=== PATIENT | male | born 1965 | race Caucasian/White ===

== ENCOUNTER 2017-03-24 09:52 | Emergency (ER) | payer SELFPAY ==
--- NOTE | 2017-03-24 10:18 | ERPHSYRPT ---
- History of Present Illness Time Seen by Provider: 03/24/17 09:59 Source: patient, other (Physical Therapist) Physician History: CC: low BP HX: 51 y/o patient enrolled in PT for post right knee replacement and then work hardening. He has had high BP and then now has low BP. He was sluggist at PT this AM. Not his normal self. Pt states he has recently started new BP med. He has hx of heavy alcohol use and has been told he has liver trouble. He sees [facility]. He has had vomiting and diarrhea for a month. No fever or chills. Feels tired and fatigue with generalized weakness. Severity: severe Allergies/Adverse Reactions: No Known Drug Allergies Allergy (Verified 09/27/12 02:14) Home Medications: Gabapentin 400 mg [Neurontin 400 MG] 400 mg PO TID 07/11/15 [History] Hydrocodone/APAP 10/325 mg [[place] 10/325 MG Tablet] 1 tab PO Q4-6HPRN PRN 08/16/15 [History] Hx Tetanus, Diphtheria Vaccination/Date Given: Yes Hx Influenza Vaccination/Date Given: No Hx Pneumococcal Vaccination/Date Given: No - Review of Systems Constitutional: Fatigue, Malaise, Weakness, No Fever, No Chills Eyes: No Symptoms Respiratory: No Cough, No Dyspnea Cardiac: Edema, No Chest Pain, No Syncope Abdominal/Gastrointestinal: Abdominal Pain, Nausea, Vomiting, Diarrhea Genitourinary Symptoms: No Dysuria Skin: No Rash Neurological: No Focal Weakness, No Headache All Other Systems: Reviewed and Negative - Past Medical History Pertinent Past Medical History: Yes Neurological History: No Pertinent History ENT History: No Pertinent History Cardiac History: Coronary Artery Disease, Hypertension Respiratory History: No Pertinent History Endocrine Medical History: No Pertinent History Musculoskeletal History: Arthritis GI Medical History: Hernia History: No Pertinent History Psycho-Social History: No Pertinent History Male Reproductive Disorders: No Pertinent History Other Medical History: R CALCANEUS FX 2011 W/ ORIF. - Past Surgical History Past Surgical History: Yes Neuro Surgical History: No Pertinent History Cardiac: No Pertinent History Respiratory: No Pertinent History Gastrointestinal: No Pertinent History Genitourinary: No Pertinent History Musculoskeletal: Joint Replacement Male Surgical History: No Pertinent History - Social History Smoking Status: Never smoker Exposure to second hand smoke: No Drug Use: none Patient Lives Alone: Yes - Nursing Vital Signs Nursing Vital Signs: Initial Vital Signs Temperature 97.4 F 03/24/17 10:01 Pulse Rate 102 H 03/24/17 10:01 Respiratory Rate 16 03/24/17 10:01 Blood Pressure 87/66 03/24/17 10:01 O2 Sat by Pulse Oximetry 100 03/24/17 10:01 Pain Scale Pain Intensity 0 - Physical Exam General Appearance: alert (lethargic) Eye Exam: PERRL/EOMI, No scleral icterus Ears, Nose, Throat Exam: dry mucous membranes Neck Exam: normal inspection, non-tender, supple, No meningismus Respiratory Exam: diminished breath sounds Cardiovascular Exam: regular rate/rhythm Gastrointestinal/Abdomen Exam: soft, tenderness (diffusely, nondistended) Male Genitalia Exam: normal genitalia, No hernia Extremity Exam: pedal edema Neurologic Exam: alert, cooperative, No motor deficits Skin Exam: warm, dry, No rash - Course Nursing assessment & vital signs reviewed: Yes EKG Interpreted by Me: RATE (99), Sinus Rhythm, NORMAL AXIS, prolonged QT interval (QTc 506), Non-specific ST Changes - Radiology Exams cxr X-ray Interpretation: Teleradiologist Report, Negative - CT Exams abd/pelvis CT Interpretation: Tele-radiologist Report (new nonobstructing renal calculus, stable fatty liver and old granulomatous disease, no acute.) Ordered Tests: Active Orders 24 hr Category Date Time Status ACCUCHECK [Accucheck] STAT Care 03/24/17 10:11 Active Clean Catch Urine Specimen STAT Care 03/24/17 10:09 Active EKG-ER Only STAT Care 03/24/17 10:09 Active Fam [Catheter-[place] Fam] STAT Care 03/24/17 11:56 Active IV Insertion STAT Care 03/24/17 10:09 Active NPO (ED) STAT Care 03/24/17 10:09 Active Rectal Temperature STAT Care 03/24/17 10:11 Active ABDOMEN AND PELVIS W/0 CONTRAS [CT] Stat Exams 03/24/17 10:10 Completed CHEST 1 VIEW (PORTABLE) Stat Exams 03/24/17 10:10 Completed ACETAMINOPHEN Routine Lab 03/24/17 10:21 Completed CBC W DIFF Stat Lab 03/24/17 10:21 Completed CMP Routine Lab 03/24/17 10:21 Completed CULTURE,URINE Stat Lab 03/24/17 11:15 Received ETHYL ALCOHOL Routine Lab 03/24/17 10:21 Completed LIPASE Routine Lab 03/24/17 10:21 Completed Lactic Acid Stat Lab 03/24/17 10:09 Completed Lactic Acid Stat Lab 03/24/17 12:25 Ordered MAGNESIUM Routine Lab 03/24/17 10:21 Completed PROTIME WITH INR Stat Lab 03/24/17 10:21 Completed TROPONIN Q3H Lab 03/24/17 10:21 Completed TROPONIN Q3H Lab 03/24/17 13:15 Ordered TROPONIN Q3H Lab 03/24/17 16:15 Ordered TROPONIN Q3H Lab 03/24/17 19:15 Ordered TROPONIN Q3H Lab 03/24/17 22:15 Ordered UA W/ MICROSCOPIC Stat Lab 03/24/17 11:15 Completed Urine Triage Profile Stat Lab 03/24/17 11:15 Completed VENOUS BLOOD GAS Urgent Lab 03/24/17 10:11 Completed Medication Summary Generic Name Dose Route Start Last Admin Trade Name Freq PRN Reason Stop Dose Admin Potassium Chloride 100 mls @ 50 mls/hr 03/24/17 10:41 03/24/17 11:06 Potassium Chloride 20 Meq In Water 100ml IV 03/24/17 12:40 50 mls/hr STAT ONE Administration Discontinued Medications Generic Name Dose Route Start Last Admin Trade Name Freq PRN Reason Stop Dose Admin Sodium Chloride 500 mls @ 999 mls/hr 03/24/17 10:09 03/24/17 10:32 Sodium Chloride 0.9% 1000 Ml IV 03/24/17 10:39 999 mls/hr .Q31M STA Administration Sodium Chloride Confirm 03/24/17 10:20 Sodium Chloride 0.9% 1000 Ml Administered 03/24/17 10:21 Dose 1,000 mls @ ud .ROUTE .STK-MED ONE Potassium Chloride Confirm 03/24/17 10:59 Potassium Chloride 20 Meq In Water 100ml Administered 03/24/17 11:00 Dose 100 mls @ ud IV .STK-MED ONE Lactated Ringer's Confirm 03/24/17 11:08 Lactated Ringers Administered 03/24/17 11:09 Dose 1,000 mls @ ud IV .STK-MED ONE Lab/Rad Data: Laboratory Result Diagrams 03/24/17 10:21 03/24/17 10:21 Laboratory Results 03/24/17 03/24/17 03/24/17 Range/Units 11:15 11:15 10:21 WBC (4.0-10.5) K/mm3 RBC (4.1-5.6) M/mm3 Hgb (12.5-18.0) gm/dl Hct (42-50) % MCV (78-100) fl MCH (26-32) pg MCHC (32-36) g/dl RDW (11.5-14.0) % Plt Count (150-450) K/mm3 MPV (6-9.5) fl Gran % (36.0-66.0) % Lymphocytes % (24.0-44.0) % Monocytes % (0.0-12.0) % Eosinophils % (0.00-5.0) % Basophils % (0.0-0.4) % Basophils # (0-0.4) INR (0.8-3.0) VBG pH (7.32-7.42) VBG pCO2 at Pat Temp (42-55) mm/Hg VBG pO2 at Pat Temp (25-40) mm/Hg VBG HCO3 (22-28) meq/L VBG O2 Sat (Teresita) (95-100) VBG Base Excess (-2.0-2.0) VBG Hemoglobin VBG Carboxyhemoglobin (0.0-6.9) % T HGB POC Potassium (3.5-5.1) Sodium (136-145) mEq/L Potassium (3.5-5.1) mEq/L Chloride (98-107) mEq/L Carbon Dioxide (21-32) mEq/L Anion Gap (5-15) MEQ/L BUN (9-20) mg/dL Creatinine (0.55-1.30) mg/dl Estimated GFR ML/MIN Glucose (70-110) MG/DL Lactic Acid (0.4-2.0) Calcium (8.5-10.1) mg/dL Magnesium (1.8-2.4) mg/dL Total Bilirubin (0.2-1.0) mg/dL AST (15-37) U/L ALT (12-78) U/L Alkaline Phosphatase (46-116) U/L Ammonia 17 (11-32) MMOL/l Troponin I (0.000-0.056) ng/ml Serum Total Protein (6.4-8.2) gm/dL Albumin (3.4-5.0) g/dL Lipase (73-393) U/L Ur Collection Type CLEAN CATCH Urine Color DARK YELLOW (YELLOW) Urine Appearance HAZY (CLEAR) Urine pH 5.0 (5-6) Ur Specific Meherrin 1.030 (1.005-1.025) Urine Protein TRACE (Negative) Urine Ketones NEGATIVE (NEGATIVE) Urine Blood NEGATIVE (0-5) Thomas/ul Urine Nitrite NEGATIVE (NEGATIVE) Urine Bilirubin SMALL (NEGATIVE) Urine Urobilinogen NORMAL (0-1) mg/dL Ur Leukocyte Esterase 1+ (NEGATIVE) Urine Microscopic RBC 0-2 (0-2) /HPF Urine Microscopic WBC 2-5 (0-5) /HPF Ur Epithelial Cells FEW (FEW) /HPF Urine Bacteria FEW (NEGATIVE) /HPF Hyaline Casts 5-10 (0-2) /LPF Urine Culture Reflexed YES (NO) Urine Glucose NEGATIVE (NEGATIVE) mg/dL Urine Opiates Level NEG. (NEGATIVE) Ur Methadone NEG. (NEGATIVE) Acetaminophen (10-30) ug/ml Urine Barbiturates NEG. (NEGATIVE) Ur Phencyclidine (PCP) NEG. (NEGATIVE) Urine Amphetamine NEG. (NEGATIVE) U Benzodiazepine Level NEG. (NEGATIVE) Urine Cocaine NEG. (NEGATIVE) Urine Marijuana (THC) POS. (NEGATIVE) Ethyl Alcohol (0.00-0.01) % Specimen Received 03/24/17 1117 03/24/17 03/24/17 03/24/17 Range/Units 10:21 10:21 10:21 WBC 11.7 H (4.0-10.5) K/mm3 RBC 3.50 L (4.1-5.6) M/mm3 Hgb 13.0 (12.5-18.0) gm/dl Hct 36.5 L (42-50) % MCV 104.3 H (78-100) fl MCH 37.1 H (26-32) pg MCHC 35.6 (32-36) g/dl RDW 15.7 H (11.5-14.0) % Plt Count 163 (150-450) K/mm3 MPV 10.3 H (6-9.5) fl Gran % 80.8 H (36.0-66.0) % Lymphocytes % 11.2 L (24.0-44.0) % Monocytes % 7.0 (0.0-12.0) % Eosinophils % 0.6 (0.00-5.0) % Basophils % 0.4 (0.0-0.4) % Basophils # 0.05 (0-0.4) INR 1.13 (0.8-3.0) VBG pH (7.32-7.42) VBG pCO2 at Pat Temp (42-55) mm/Hg VBG pO2 at Pat Temp (25-40) mm/Hg VBG HCO3 (22-28) meq/L VBG O2 Sat (Teresita) (95-100) VBG Base Excess (-2.0-2.0) VBG Hemoglobin VBG Carboxyhemoglobin (0.0-6.9) % T HGB POC Potassium (3.5-5.1) Sodium 131 L (136-145) mEq/L Potassium 2.9 L* (3.5-5.1) mEq/L Chloride 90 L (98-107) mEq/L Carbon Dioxide 25.1 (21-32) mEq/L Anion Gap 18.5 H (5-15) MEQ/L BUN 55 H (9-20) mg/dL Creatinine 5.80 H (0.55-1.30) mg/dl Estimated GFR 11 ML/MIN Glucose 146 H (70-110) MG/DL Lactic Acid (0.4-2.0) Calcium 8.6 (8.5-10.1) mg/dL Magnesium 1.7 L (1.8-2.4) mg/dL Total Bilirubin 1.90 H (0.2-1.0) mg/dL AST 56 H (15-37) U/L ALT 24 (12-78) U/L Alkaline Phosphatase 116 (46-116) U/L Ammonia (11-32) MMOL/l Troponin I < 0.017 (0.000-0.056) ng/ml Serum Total Protein 7.4 (6.4-8.2) gm/dL Albumin 2.6 L (3.4-5.0) g/dL Lipase 189 (73-393) U/L Ur Collection Type Urine Color (YELLOW) Urine Appearance (CLEAR) Urine pH (5-6) Ur Specific Meherrin (1.005-1.025) Urine Protein (Negative) Urine Ketones (NEGATIVE) Urine Blood (0-5) Thomas/ul Urine Nitrite (NEGATIVE) Urine Bilirubin (NEGATIVE) Urine Urobilinogen (0-1) mg/dL Ur Leukocyte Esterase (NEGATIVE) Urine Microscopic RBC (0-2) /HPF Urine Microscopic WBC (0-5) /HPF Ur Epithelial Cells (FEW) /HPF Urine Bacteria (NEGATIVE) /HPF Hyaline Casts (0-2) /LPF Urine Culture Reflexed (NO) Urine Glucose (NEGATIVE) mg/dL Urine Opiates Level (NEGATIVE) Ur Methadone (NEGATIVE) Acetaminophen < 2.0 L (10-30) ug/ml Urine Barbiturates (NEGATIVE) Ur Phencyclidine (PCP) (NEGATIVE) Urine Amphetamine (NEGATIVE) U Benzodiazepine Level (NEGATIVE) Urine Cocaine (NEGATIVE) Urine Marijuana (THC) (NEGATIVE) Ethyl Alcohol < 0.010 (0.00-0.01) % Specimen Received 03/24/17 03/24/17 Range/Units 10:11 10:09 WBC (4.0-10.5) K/mm3 RBC (4.1-5.6) M/mm3 Hgb (12.5-18.0) gm/dl Hct (42-50) % MCV (78-100) fl MCH (26-32) pg MCHC (32-36) g/dl RDW (11.5-14.0) % Plt Count (150-450) K/mm3 MPV (6-9.5) fl Gran % (36.0-66.0) % Lymphocytes % (24.0-44.0) % Monocytes % (0.0-12.0) % Eosinophils % (0.00-5.0) % Basophils % (0.0-0.4) % Basophils # (0-0.4) INR (0.8-3.0) VBG pH 7.42 (7.32-7.42) VBG pCO2 at Pat Temp 41 L (42-55) mm/Hg VBG pO2 at Pat Temp 25 (25-40) mm/Hg VBG HCO3 26.6 (22-28) meq/L VBG O2 Sat (Teresita) 49.1 L (95-100) VBG Base Excess 1.9 (-2.0-2.0) VBG Hemoglobin 14.0 VBG Carboxyhemoglobin 3.1 (0.0-6.9) % T HGB POC Potassium 2.8 L* (3.5-5.1) Sodium (136-145) mEq/L Potassium (3.5-5.1) mEq/L Chloride (98-107) mEq/L Carbon Dioxide (21-32) mEq/L Anion Gap (5-15) MEQ/L BUN (9-20) mg/dL Creatinine (0.55-1.30) mg/dl Estimated GFR ML/MIN Glucose (70-110) MG/DL Lactic Acid 3.1 H (0.4-2.0) Calcium (8.5-10.1) mg/dL Magnesium (1.8-2.4) mg/dL Total Bilirubin (0.2-1.0) mg/dL AST (15-37) U/L ALT (12-78) U/L Alkaline Phosphatase (46-116) U/L Ammonia (11-32) MMOL/l Troponin I (0.000-0.056) ng/ml Serum Total Protein (6.4-8.2) gm/dL Albumin (3.4-5.0) g/dL Lipase (73-393) U/L Ur Collection Type Urine Color (YELLOW) Urine Appearance (CLEAR) Urine pH (5-6) Ur Specific Meherrin (1.005-1.025) Urine Protein (Negative) Urine Ketones (NEGATIVE) Urine Blood (0-5) Thomas/ul Urine Nitrite (NEGATIVE) Urine Bilirubin (NEGATIVE) Urine Urobilinogen (0-1) mg/dL Ur Leukocyte Esterase (NEGATIVE) Urine Microscopic RBC (0-2) /HPF Urine Microscopic WBC (0-5) /HPF Ur Epithelial Cells (FEW) /HPF Urine Bacteria (NEGATIVE) /HPF Hyaline Casts (0-2) /LPF Urine Culture Reflexed (NO) Urine Glucose (NEGATIVE) mg/dL Urine Opiates Level (NEGATIVE) Ur Methadone (NEGATIVE) Acetaminophen (10-30) ug/ml Urine Barbiturates (NEGATIVE) Ur Phencyclidine (PCP) (NEGATIVE) Urine Amphetamine (NEGATIVE) U Benzodiazepine Level (NEGATIVE) Urine Cocaine (NEGATIVE) Urine Marijuana (THC) (NEGATIVE) Ethyl Alcohol (0.00-0.01) % Specimen Received - Progress Progress Note: 03/24/17 11:11 BP low. IVF bolus given. Maya moraes. Maya rider initiated. 03/24/17 12:35 BP better. Spoke to Dr Chong who advised transfer to [facility]. Called [facility] transfer center and Dr Maya Alonzo accepts to [facility] ER. Counseled pt/family regarding: lab results, diagnosis, need for follow-up, rad results - Departure Time of Disposition: 12:36 Departure Disposition: Transfer ([facility] ER) Clinical Impression: Hypotension, Acute renal failure, Hypokalemia, Hepatorenal syndrome Condition: Fair Critical Care Time: Yes Critical Care Time(excluding separately billable procedures): 30-74 minutes Referrals: JESSICA CHONG MD [Primary Care Provider] -
[2017-03-24] MEDS ORDERED: Sodium Chloride 0.9% 1000 ML 1,000 ML ONE (10:20)
[2017-03-24 10:25] LABS: Lactic Acid 3.1 (0.4-2.0)
[2017-03-24 10:27] LABS: BASOPHIL % 0.4 % (0.0-0.4); Basophil (Absolute #) 0.05 (0-0.4); Eosinophil % 0.6 % (0.00-5.0); Eosinophil (Absolute #) 0.07 (0-0.5); Granulocyte Absolute (ANC) 9.42 (1.4-6.9); Granulocytes % 80.8 % (36.0-66.0); Hematocrit 36.5 % (42-50); Lymphocyte (Absolute #) 1.31 (1.0-4.6); Lymphocytes % 11.2 % (24.0-44.0); Mean Cell Volume 104.3 fl (78-100); Mean Corpuscular Hemoglobin 37.1 pg (26-32); Mean Corpuscular Hgb Concent. 35.6 g/dl (32-36); Mean Platelet Volume 10.3 fl (6-9.5); Monocyte (Absolute #) 0.82 (0.0-1.3); Platelet Count 163 K/mm3 (150-450); Red Cell Distribution Width 15.7 % (11.5-14.0); White Blood Count 11.7 K/mm3 (4.0-10.5)
[2017-03-24 10:27] LABS: VBG BASE EXCESS 1.9 (-2.0-2.0); VBG CARBOXYHEMOGLOBIN 3.1 % T HGB (0.0-6.9); VBG HCO3- 26.6 meq/L (22-28); VBG O2 SATURATION 49.1 (95-100); VBG pH 7.42 (7.32-7.42)
[2017-03-24 10:28] LABS: VBG POTASSIUM 2.8 (3.5-5.1)
[2017-03-24 10:40] LABS: INR 1.13 (0.8-3.0)
--- NOTE | 2017-03-24 10:50 | XRAY ---
Indication: Hypotension. Comparison: September 07, 2014. Portable apical lordotic chest again demonstrates normal heart and lungs with a few incidental scattered calcified granulomas. Bony thorax intact. No new/acute findings. Impression: Stable nonacute chest.
[2017-03-24 10:52] LABS: ALBUMIN 2.6 g/dL (3.4-5.0); ALKALINE PHOSPHATASE 116 U/L (46-116); ANION GAP 18.5 MEQ/L (5-15); BLOOD UREA NITROGEN 55 mg/dL (9-20); CHLORIDE 90 mEq/L (98-107); Calcium 8.6 mg/dL (8.5-10.1); Carbon Dioxide 25.1 mEq/L (21-32); EST GLOMERULAR FILTRATION RATE 11 ML/MIN; ETHYL ALCOHOL < 0.010 % (0.00-0.01); Glucose 146 MG/DL (70-110); LIPASE 189 U/L (73-393); SGOT/AST 56 U/L (15-37); SGPT/ALT 24 U/L (12-78); SODIUM 131 mEq/L (136-145); Total Protein 7.4 gm/dL (6.4-8.2)
--- NOTE | 2017-03-24 10:53 | XRAY ---
Indication: Abdominal pain. Cirrhosis. Multiple contiguous axial images obtained through the abdomen and pelvis without contrast as ordered. Comparison: May 28, 2012. Lung bases demonstrates stable bilateral calcified and noncalcified granulomas. No infiltrate or effusion. Heart is not enlarged. Noncontrasted stomach and bowel loops appear nonobstructed. Normal appendix. Stable diffuse fatty liver. No free fluid/air. New nonobstructing punctate left lower renal calculus. Remaining liver, gallbladder, pancreas, spleen, adrenal glands, kidneys, ureters and bladder, and aorta appear unremarkable for noncontrast exam. Osseous structures intact with mild degenerative changes throughout the spine and stable thoracolumbar Schmorl nodes. Impression: 1. New nonobstructing left renal micro-calculus. 2. Stable fatty liver and evidence for old granulomatous disease. 3. No acute intra-abdominal/pelvic abnormalities on this noncontrast exam. CT DI 23.46
[2017-03-24] MEDS ORDERED: POTASSIUM CHLORIDE 20 mEq IN WATER 100ML 100 ML IV ONE (10:59)
[2017-03-24 11:04] LABS: MAGNESIUM 1.7 mg/dL (1.8-2.4); Potassium 2.9 mEq/L (3.5-5.1); TROPONIN < 0.017 ng/ml (0.000-0.056)
[2017-03-24 11:05] LABS: ACETAMINOPHEN < 2.0 ug/ml (10-30)
[2017-03-24] MEDS: POTASSIUM CHLORIDE 20 mEq IN WATER 100ML 100 ML IV ONE (11:06)
[2017-03-24] MEDS ORDERED: Lactated Ringers 1,000 ML IV ONE (11:08)
[2017-03-24 11:47] LABS: Amphetamine,Urine NEG. (NEGATIVE); Barbiturate,Urine NEG. (NEGATIVE); Benzodiazepine,Urine NEG. (NEGATIVE); Cocaine,Urine NEG. (NEGATIVE); Methadone,Urine NEG. (NEGATIVE); Opiate,Urine NEG. (NEGATIVE); PCP,Urine NEG. (NEGATIVE); THC,Urine POS. (NEGATIVE)
[2017-03-24 11:52] LABS: Appearance HAZY (CLEAR); Glucose NEGATIVE (NEGATIVE); Ketones NEGATIVE (NEGATIVE); Leukocyte Esterase 1+ (NEGATIVE); Nitrite NEGATIVE (NEGATIVE); Protein,Urine Dip TRACE (Negative); Urobilinogen NORMAL mg/dL (0-1)
[2017-03-24 11:53] LABS: Bacteria FEW /HPF (NEGATIVE); Bilirubin SMALL (NEGATIVE); Blood NEGATIVE Ery/ul (0-5); Epithelial Cells FEW /HPF (FEW)
[2017-03-24 14:08] VITALS: BP 120/84; PULSE 85; O2SAT 99
== END 2017-03-24 14:20 | disposition short-term general hospital (02) ==
LOC: ED 09:52
DX: N17.9 Acute kidney failure, unspecified (principal); E87.6 Hypokalemia; K76.7 Hepatorenal syndrome; I10 Essential (primary) hypertension; I25.10 Atherosclerotic heart disease of native coronary artery without angina pectoris; M19.90 Unspecified osteoarthritis, unspecified site
CPT/HCPCS: 36000; 36415; 51702; 71045; 74176; 80053; 80307; 81000; 82140; 82805; 82962; 83605; 83690; 83735; 84484; 85025; 85610; 87077; 87086; 87186; 93005; 96360; 96361; 96365; 99291; G0481; J3480

== ENCOUNTER 2017-11-22 20:31 | Emergency (ER) | payer OTHER ==
[2017-11-22] MEDS ORDERED: Sodium Chloride 0.9% 1000 ML 1,000 ML ONE ×2 (20:34→21:17)
[2017-11-22] MEDS: Sodium Chloride 0.9% 1000 ML 1,000 ML IV STA (20:40)
[2017-11-22] MEDS: Zemuron 100 MG/10 ML IV ONE (20:41)
[2017-11-22] MEDS: VERSED 5 MG/5 ML IV ONE (20:41)
[2017-11-22] MEDS ORDERED: solu-MEDROL 125 MG ONE (20:47)
[2017-11-22] MEDS: solu-MEDROL 125 MG IV ONE (20:48)
[2017-11-22] MEDS ORDERED: Versed 50 MG/ 10 Ml MDV ONE (20:57)
[2017-11-22] MEDS ORDERED: Sodium Chloride 0.9% 250 ML 250 ML IV ONE (20:57)
--- NOTE | 2017-11-22 21:00 | ERPHSYRPT ---
- History of Present Illness Time Seen by Provider: 11/22/17 20:35 Source: family, EMS Exam Limitations: clinical condition Patient Subjective Stated Complaint: PER EMS - upon arrival on scene pt was in basement sitting in a chair severely short of breath, reports pt was sitting on a pad saturated with bright red blood Triage Nursing Assessment: pt is lethargic upon arrival, pt being bagged per EMS at this time, pt skin is dusky, pt radial pulses are strong and regular, pt moaning at this time, pt not responding to painful stimuli, pt abd is soft, slightly distended. 4+ pitting edema noted to bilateral lower extremities. Physician History: 52 y/o white male with h/o chf, copd, cirrhosis, acute and chronic anemia presents with severe soa and respiratory distress. pt arrives in respiratory arrest. not intubated and no peripheral access. pts hx obtained from family members. pt bled rectally at home. he became diaphoretic and in severe soa. pt on eliquis. pt on bumex, thiamine. pts initial bp was 60s/40s, oxygen sats 60s to low 70s rm air sats. pt recently discharged from [facility] for acute blood loss requiring blood transfusion as well as 4 days on ventilator. Timing/Duration: today Activities at Onset: none Severity of Dyspnea-Max: severe Severity of Dyspnea-Current: severe Possible Cause: frequent episodes, chronic episodes Modifying Factors: Improves With: exertion Associated Symptoms: intermittent, weakness Allergies/Adverse Reactions: No Known Drug Allergies Allergy (Verified 11/22/17 21:11) Home Medications: Apixaban [Eliquis] 5 mg PO BID 11/22/17 [History] Bumetanide 2 mg PO DAILY 11/22/17 [History] Iron Ps Complex/B12/Folic Acid [Poly-Iron 150 Forte Capsule] 150 mg PO DAILY [History] Thiamine HCl 100 mg [Vitamin B-1 100 mg] 100 mg PO DAILY 11/22/17 [History ] Zinc Sulfate 220 mg PO DAILY 11/22/17 [History] Hx Tetanus, Diphtheria Vaccination/Date Given: Yes Hx Influenza Vaccination/Date Given: No Hx Pneumococcal Vaccination/Date Given: No Immunizations Up to Date: Yes - Review of Systems Constitutional: No Symptoms, Weakness, No Fever Eyes: No Symptoms Ears, Nose, & Throat: No Symptoms Respiratory: Dyspnea, No Stridor, No Wheezing Cardiac: No Symptoms, No Palpitations, No Syncope Abdominal/Gastrointestinal: No Symptoms, No Abdominal Pain, No Nausea, No Vomiting, No Diarrhea Musculoskeletal: No Symptoms Skin: Other (pale and diaphoretic) Neurological: Other (severe distress) Hematologic/Lymphatic: Anemia Immunological/Allergic: No Symptoms All Other Systems: Reviewed and Negative - Past Medical History Pertinent Past Medical History: Yes Neurological History: No Pertinent History ENT History: No Pertinent History Cardiac History: Hypertension Respiratory History: No Pertinent History Endocrine Medical History: No Pertinent History Musculoskeletal History: Arthritis GI Medical History: Hernia History: No Pertinent History Psycho-Social History: No Pertinent History Male Reproductive Disorders: No Pertinent History Other Medical History: R CALCANEUS FX 2011 W/ ORIF. - Past Surgical History Past Surgical History: Yes Neuro Surgical History: No Pertinent History Cardiac: No Pertinent History Respiratory: No Pertinent History Gastrointestinal: No Pertinent History Genitourinary: No Pertinent History Musculoskeletal: Joint Replacement Male Surgical History: No Pertinent History - Social History Smoking Status: Unknown if ever smoked Exposure to second hand smoke: No Drug Use: none Patient Lives Alone: Yes - Nursing Vital Signs Nursing Vital Signs: Initial Vital Signs Pulse Rate 116 H 11/22/17 20:41 Respiratory Rate 16 11/22/17 20:41 O2 Sat by Pulse Oximetry 93 L 11/22/17 20:41 - Physical Exam General Appearance: severe distress Eye Exam: pale conjunctivae Ears, Nose, Throat Exam: hearing grossly normal Neck Exam: normal inspection Respiratory Exam: respiratory distress, airway intact, diminished breath sounds (bilat), accessory muscle use, No rhonchi, No wheezing, No stridor Cardiovascular/Chest Exam: tachycardia, other (faint peripheral pulses) Abdominal/Gastrointestinal Exam: soft, normal bowel sounds, other (ascites), No tenderness, No guarding, No rebound Rectal Exam: not done Extremity Exam: non-tender, normal range of motion, swelling (bilat pedal and ankle edema left greater than right.) Neurologic Exam: other (unable to adequately assess pt in severe respiratory distress) Skin Exam: diaphoresis, pale Lymphatic Exam: No adenopathy SpO2 Interpretation: normal SpO2: 97 Oxygen Delivery: Ventilator Procedures - Central Line Timeout: Performed Central Line Lumen: triple Lumen Size: 7 Divehi Central Line Procedure: chlorahexadine prep, sterile drapes applied, sterile dressing applied, Aseptic Technique, Seldinger Technique Central Line Postion: subclavian (L) Complications: none Central Line Post Position: sutured, good blood return, position confirmed w/ CXR, chest x-ray ordered - Intubation Intubation Indications: respiratory arrest Intubation Method: orotracheal, glidescope Tube Size (cm): 8.0 Medications: Midazolam (Versed), Rocuronium Endotracheal Tube Confirmation: bilateral breath sounds, positive end tidal CO2 , good rise & fall of chest, stable or inc of O2 sat Intubation Complications: no complications Performed By: Other (and ED physician) Post Intubation Xray: Yes Progress/X-ray Impression: 11/22/17 23:31 post intubation cxr ettube w/in trachea approx 3 to 4cm above bifurcation - Course Nursing assessment & vital signs reviewed: Yes EKG Interpreted by Me: RATE (62), Sinus Rhythm, NORMAL AXIS, NORMAL INTERVALS, NORMAL QRS, Non-specific ST Changes Ordered Tests: Active Orders 24 hr Category Date Time Status CO2 Monitoring STAT Care 11/22/17 21:00 Active Metallurgical Engineering Teacher STAT Care 11/22/17 21:01 Active Catheter-[place] Fam STAT Care 11/22/17 21:00 Active EKG-ER Only STAT Care 11/22/17 21:00 Active IV Insertion STAT Care 11/22/17 21:00 Active Pulse Oximetry (ED) STAT Care 11/22/17 21:00 Active CHEST 1 VIEW (PORTABLE) Stat Exams 11/22/17 20:38 Taken CHEST 1 VIEW (PORTABLE) Stat Exams 11/22/17 21:01 Taken CHEST 1 VIEW (PORTABLE) Stat Exams 11/22/17 21:29 Taken ARTERIAL BLOOD GASES Stat Lab 11/22/17 21:10 Completed CBC W DIFF Stat Lab 11/22/17 21:00 Ordered CMP Stat Lab 11/22/17 21:00 Completed Lactic Acid Stat Lab 11/22/17 21:10 Completed Lactic Acid Stat Lab 11/22/17 23:10 Ordered NT PRO BNP Stat Lab 11/22/17 21:00 Completed PROTIME WITH INR Stat Lab 11/22/17 21:00 Completed TROPONIN Q3H Lab 11/22/17 21:15 Completed TROPONIN Q3H Lab 11/23/17 00:15 Ordered TROPONIN Q3H Lab 11/23/17 03:15 Ordered TROPONIN Q3H Lab 11/23/17 06:15 Ordered TROPONIN Q3H Lab 11/23/17 09:15 Ordered Medication Summary Generic Name Dose Route Start Last Admin Trade Name Rene PRN Reason Stop Dose Admin Midazolam HCl 50 mg/ Sodium 250 mls @ 10 mls/hr 11/22/17 21:02 11/22/17 21:20 Chloride IV 12/22/17 21:01 2 mg/hr .Q24H PRN 10 mls/hr SEDATION Administration Protocol 2 MG/HR Discontinued Medications Generic Name Dose Route Start Last Admin Trade Name Rene PRN Reason Stop Dose Admin Sodium Chloride Confirm 11/22/17 20:34 Sodium Chloride 0.9% 1000 Ml Administered 11/22/17 20:35 Dose 1,000 mls @ ud .ROUTE .STK-MED ONE Sodium Chloride Confirm 11/22/17 20:57 Sodium Chloride 0.9% 250 Ml Administered 11/22/17 20:58 Dose 250 mls @ ud IV .STK-MED ONE Sodium Chloride 1,000 mls @ 999 mls/hr 11/22/17 21:00 11/22/17 20:40 Sodium Chloride 0.9% 1000 Ml IV 11/22/17 22:00 999 mls/hr .Q1H1M STA Administration Sodium Chloride Confirm 11/22/17 21:17 Sodium Chloride 0.9% 1000 Ml Administered 11/22/17 21:18 Dose 1,000 mls @ ud .ROUTE .STK-MED ONE Methylprednisolone Sodium Succinate Confirm 11/22/17 20:47 Solu-Medrol 125 Mg Administered 11/22/17 20:48 Dose 125 mg .ROUTE .STK-MED ONE Methylprednisolone Sodium Succinate 125 mg 11/22/17 21:00 11/22/17 20:48 Solu-Medrol 125 Mg IV 11/22/17 21:01 125 mg STAT ONE Administration Midazolam HCl Confirm 11/22/17 20:57 Versed 50 Mg/ 10 Ml Mdv Administered 11/22/17 20:58 Dose 50 mg .ROUTE .STK-MED ONE Midazolam HCl 5 mg 11/22/17 21:02 11/22/17 20:41 Versed 5 Mg/5 Ml IV 11/22/17 21:03 5 mg STAT ONE Administration Lab/Rad Data: Laboratory Result Diagrams 11/22/17 21:00 Laboratory Results 11/22/17 11/22/17 11/22/17 Range/Units Unknown 21:15 21:10 PT (8.83-12.87) SECONDS INR (0.8-3.0) Puncture Site LEFT BRACHIAL pCO2 29 L (35-45) mmHg pO2 274 H* (75-100) mmHg Base Excess -15.2 L (-2.0-2.0) O2 Saturation 97.3 (94-100) g/dF ABG pH 7.20 L* (7.35-7.45) ABG HCO3 11.3 L* (22-28) ABG O2 Sat (Measured) 100.5 H (95-100) % Ajay Test YES A-a Gradient 403 a/A Ratio 0.40 Hemoglobin 3.3 L* Carboxyhemoglobin 2.4 (0.0-6.9) % THgb Methemoglobin 0.9 L (1.4-1.5) % Temperature 37.0 C POC O2 Flow Rate 100 % Sodium (137-145) mmol/L Potassium 3.4 L (3.5-5.1) mmol/L Chloride (98-107) mmol/L Carbon Dioxide (22-30) mmol/L Anion Gap (5-15) MEQ/L BUN (9-20) mg/dL Creatinine (0.66-1.25) mg/dL Estimated GFR ML/MIN Glucose (74-106) mg/dL Lactic Acid 12.1 H (0.4-2.0) Calcium (8.4-10.2) mg/dL Total Bilirubin (0.2-1.3) mg/dL AST (17-59) U/L ALT (0-50) U/L Alkaline Phosphatase (38-126) U/L Ammonia 19 (9-30) umol/L Troponin I < 0.012 (0.000-0.034) ng/mL NT-Pro-B Natriuret Pep (0-900) pg/mL Serum Total Protein (6.3-8.2) g/dL Albumin (3.5-5.0) g/dL 11/22/17 11/22/17 Range/Units 21:00 21:00 PT 25.6 H (8.83-12.87) SECONDS INR 2.18 (0.8-3.0) Puncture Site pCO2 (35-45) mmHg pO2 (75-100) mmHg Base Excess (-2.0-2.0) O2 Saturation (94-100) g/dF ABG pH (7.35-7.45) ABG HCO3 (22-28) ABG O2 Sat (Measured) (95-100) % Ajay Test A-a Gradient a/A Ratio Hemoglobin Carboxyhemoglobin (0.0-6.9) % THgb Methemoglobin (1.4-1.5) % Temperature C POC O2 Flow Rate % Sodium 136 L (137-145) mmol/L Potassium 3.5 (3.5-5.1) mmol/L Chloride 100 (98-107) mmol/L Carbon Dioxide 13 L* (22-30) mmol/L Anion Gap 25.8 H (5-15) MEQ/L BUN 32 H (9-20) mg/dL Creatinine 5.48 H (0.66-1.25) mg/dL Estimated GFR 11.8 ML/MIN Glucose 136 H (74-106) mg/dL Lactic Acid (0.4-2.0) Calcium 7.4 L (8.4-10.2) mg/dL Total Bilirubin 0.60 (0.2-1.3) mg/dL AST 39 (17-59) U/L ALT 32 (0-50) U/L Alkaline Phosphatase 99 (38-126) U/L Ammonia (9-30) umol/L Troponin I (0.000-0.034) ng/mL NT-Pro-B Natriuret Pep 1620 H (0-900) pg/mL Serum Total Protein 4.7 L (6.3-8.2) g/dL Albumin 2.0 L (3.5-5.0) g/dL - Progress Progress: improved, re-examined Air Movement: good Progress Note: 11/22/17 23:[address] dickens at [facility]. I reviewed pt hx, condition, labs, ekg and xray results. he accepts pt for transfer/admission Blood Culture(s) Obtained: No Antibiotics given: No Counseled pt/family regarding: lab results, diagnosis, rad results - Departure Time of Disposition: 23:44 Departure Disposition: Transfer Clinical Impression: Respiratory arrest, Hypotension, Anemia Condition: Critical Critical Care Time: Yes Critical Care Time(excluding separately billable procedures): 75-104 minutes Referrals: JESSICA CHONG MD [Primary Care Provider] -
[2017-11-22 21:09] LABS: INR 2.18 (0.8-3.0)
[2017-11-22 21:16] LABS: A-aADO2 403; ABG POTASSIUM 3.4 (3.5-5.1); ARTERIAL BLD GAS O2 SATURATION 100.5 % (95-100); ARTERIAL BLOOD GAS BASE EXCESS -15.2 (-2.0-2.0); ARTERIAL BLOOD GAS FIO2 100 %; ARTERIAL BLOOD GAS PCO2 29 mmHg (35-45); ARTERIAL BLOOD GAS PO2 274 mmHg (75-100); CARBOXYHEMOGLOBIN 2.4 % THgb (0.0-6.9); HCO3- 11.3 (22-28); HGB O2 SAT 97.3 g/dF (94-100); Lactic Acid 12.1 (0.4-2.0); Methhemoglobin 0.9 % (1.4-1.5)
[2017-11-22 21:19] LABS: ABG HEMOGLOBIN 3.3; ABG SITE LEFT BRACHIAL; ALLEN TEST OK? YES
[2017-11-22] MEDS: Versed 50 MG/ 10 Ml MDV*** 50 MG in Sodium Chloride 0.9% 250 ML 240 ML IV PRN (21:20)
[2017-11-22 21:22] LABS: ANION GAP 25.8 MEQ/L (5-15); BILIRUBIN,TOTAL 0.6 mg/dL (0.2-1.3); Calcium 7.4 mg/dL (8.4-10.2); Creatinine 1 5.48 mg/dL (0.66-1.25); Potassium 3.5 mmol/L (3.5-5.1); Total Protein 4.7 g/dL (6.3-8.2)
[2017-11-22] MEDS ORDERED: Lubrifresh P.M. 3.5 gm Ointment ONE (23:21)
[2017-11-22 23:39] LABS: Lactic Acid 5.2 (0.4-2.0)
[2017-11-22 23:42] LABS: A-aADO2 147; ABG POTASSIUM 3.5 (3.5-5.1); ARTERIAL BLD GAS O2 SATURATION 100.7 % (95-100); ARTERIAL BLOOD GAS BASE EXCESS -7.4 (-2.0-2.0); ARTERIAL BLOOD GAS FIO2 80 %; ARTERIAL BLOOD GAS PCO2 34 mmHg (35-45); ARTERIAL BLOOD GAS PO2 381 mmHg (75-100); ARTERIAL BLOOD GAS pH 7.33 (7.35-7.45); CARBOXYHEMOGLOBIN 1.6 % THgb (0.0-6.9); HCO3- 17.9 (22-28); HGB O2 SAT 98.8 g/dF (94-100); Methhemoglobin 0.3 % (1.4-1.5); paO2 pAO1 0.72
[2017-11-22 23:43] LABS: ABG SITE LEFT RADIAL; ALLEN TEST OK? YES
[2017-11-22 23:57] VITALS: O2SAT 100
[2017-11-23] MEDS: Nimbex 200MG/20 Ml MDV (HIGH RISK MED)** 200 MG in Dextrose 5%/Water IV Soln. 250 ML 18... IV SCH (00:12)
[2017-11-23 00:21] LABS: ABO TYPING O; Antibody Screen NEGATIVE (NEGATIVE); RH TYPING POSITIVE
[2017-11-23] MEDS ORDERED: PROTONIX 40 MG IV IV ONE (00:43)
[2017-11-23] MEDS: PROTONIX 40 MG IV IV ONE (00:45)
[2017-11-23 00:47] VITALS: PULSE 104
[2017-11-23 01:02] VITALS: BP 138/84
[2017-11-23] MEDS ORDERED: Sodium Chloride 0.9% 500 ML 500 ML IV ONE (01:15)
[2017-11-23 06:54] LABS: White Blood Count 20.2 K/mm3 (4.0-10.5)
[2017-11-23 06:56] LABS: Hemoglobin 3.4 gm/dl (12.5-18.0); Red Blood Count 0.98 M/mm3 (4.1-5.6)
[2017-11-23 06:57] LABS: Hematocrit 10.3 % (42-50); Mean Cell Volume 105.1 fl (78-100); Mean Corpuscular Hemoglobin 34.7 pg (26-32); Mean Platelet Volume 11.5 fl (6-9.5); Platelet Count 335 K/mm3 (150-450)
[2017-11-23 07:02] LABS: Red Cell Distribution Width 19.8 % (11.5-14.0)
--- NOTE | 2017-11-23 08:38 | XRAY ---
Indication: Full code. Intubation. Comparison: March 24, 2017. Portable chest demonstrates endotracheal tube tip 6 cm above the ruiz. Lungs inflated and clear again with a few incidental calcified granulomas. Remaining heart and bony thorax unremarkable.
--- NOTE | 2017-11-23 08:38 | XRAY ---
Indication: Line placement. Comparison: Taken earlier in the day. Portable chest demonstrates new left subclavian central venous access catheter with tip projecting over the SVC. No pneumothorax. Remaining heart, lungs, and endotracheal tube unchanged.
[2017-11-24 12:37] LABS: ANISOCYTOSIS 2+; BAND 1 % (0.0-2.0); Lymphocytes 21 % (24-44); Monocyte 3 % (0.0-12.0); Neutrophils 75 % (36.-66.); Nucleated Red Blood Cell 1 %; Poikilocytosis 1+; Total Cells Counted 100
[2017-11-24 12:38] LABS: Platelet Estimate NORMAL (NORMAL); Polychromasia 1+; Toxic Granulation 1+
== END 2017-11-23 01:45 | disposition short-term general hospital (02) ==
LOC: ED 20:31
PROC: 05H633Z Insertion of Infusion Device into Left Subclavian Vein, Percutaneous Approach (ICD-10-PCS; principal; 2017-11-22)
DX: R09.2 Respiratory arrest (principal); I95.9 Hypotension, unspecified; K62.5 Hemorrhage of anus and rectum; D64.9 Anemia, unspecified; Z79.899 Other long term (current) drug therapy
CPT/HCPCS: 31500; 36000; 36415; 36556; 36600; 51702; 71045; 80053; 82140; 82375; 82803; 83605; 83880; 84484; 85025; 85610; 86850; 86900; 86901; 86922; 93005; 93041; 94002; 94250; 94799; 96360; 96361; 96365; 96366; 96374; 96375; 99285; 99291; 99292; P9016; 36430; J2250; J2930; A9270-GY

== ENCOUNTER 2018-04-02 18:58 | Emergency (ER) | payer OTHER | END 2018-04-02 21:49 | disposition short-term general hospital (02) | LOC: ED 18:58 ==